=== PATIENT | female | born 1935 | race Caucasian/White ===

== ENCOUNTER 2016-08-19 00:14 | Emergency (ER) | payer OTHER ==
[~2016-08-19] VITALS: Ht 149.9 cm; Wt 63.6 kg
[2016-08-19 00:17] VITALS: Ht 149.9 cm; Wt 63.6 kg
[2016-08-19 00:45] LABS: ADD SCAN DIFF NO
[2016-08-19 00:47] LABS: BASOPHILS % 0.4 % (0.0-2.0); EOSINOPHILS # 0.1 10^3/ul (0.0-0.5); EOSINOPHILS % 0.6 % (0.0-7.0); HEMATOCRIT 37.1 % (37.0-47.0); HEMOGLOBIN 12.4 g/dl (12.0-16.0); LYMPHOCYTES # 2.1 10^3/ul (0.8-2.9); LYMPHOCYTES % 26.3 % (15.0-51.0); MEAN CORPUSCULAR HEMOGLOBIN 30.1 pg (29.0-33.0); MEAN CORPUSCULAR HGB CONC 33.4 g/dl (32.0-37.0); MEAN PLATELET VOLUME 9.5 fl (7.4-10.4); MONOCYTE # 0.8 10^3/ul (0.3-0.9); MONOCYTES % 10.4 % (0.0-11.0); NEUTROPHILS % 62.1 % (39.0-77.0); PLATELET COUNT 257 10^3/UL (140-415); RED BLOOD COUNT 4.12 10^6/ul (4.20-5.40); RED CELL DISTRIBUTION WIDTH 12.8 % (11.5-14.5); WHITE BLOOD COUNT 8.1 10^3/ul (4.8-10.8)
[2016-08-19 01:06] LABS: INR 0.98
[2016-08-19 01:07] LABS: PARTIAL THROMBOPLASTIN TIME 32.4 Sec (25.0-35.0)
[2016-08-19 01:10] LABS: ALANINE AMINOTRANSFERASE 25 IU/L (13-69); ALBUMIN 4.3 g/dl (3.3-4.9); ALBUMIN/GLOBULIN RATIO 1.22; ALKALINE PHOSPHATASE 72 IU/L (42-121); ANION GAP 11 (8-16); ASPARTATE AMINO TRANSFERASE 20 IU/L (15-46); BILIRUBIN,INDIRECT 0.8 mg/dl (0-1.1); BILIRUBIN,TOTAL 0.8 mg/dl (0.2-1.3); BLOOD UREA NITROGEN 11 mg/dl (7-20); CALCIUM 9.9 mg/dl (8.4-10.2); CARBON DIOXIDE 27 mmol/L (21-31); CHLORIDE 104 mmol/L (97-110); CREATINE KINASE 36 IU/L (23-200); CREATININE 0.62 mg/dl (0.44-1.00); GLUCOSE 126 mg/dl (70-220); POTASSIUM 3.3 mmol/L (3.5-5.1); SODIUM 139 mmol/L (135-144); TOTAL PROTEIN 7.8 g/dl (6.1-8.1)
[2016-08-19 01:21] LABS: B-TYPE NATRIURETIC PEPTIDE 91 PG/ML (0-450)
[2016-08-19 01:22] LABS: CK-MB 0.52 ng/ml (0.0-2.4)
[2016-08-19 01:30] LABS: TROPONIN-I < 0.012 ng/ml (0.00-0.12)
[2016-08-19 01:31] LABS: TROPONIN-I < 0.012 ng/ml (0.00-0.12)
--- NOTE | 2016-08-19 01:35 | RADRPT ---
PROCEDURE: CHEST - 1 VIEW CLINICAL INDICATION: 81-year-old female with chest pain. TECHNIQUE: A single frontal supine portable view of the chest was performed. The images were revi ewed on a PACS workstation. COMPARISON: None. FINDINGS: The cardiomediastinal silhouette is mildly enlarged. There is a shallow inspiration. Chronic lung changes are present. There is no evidence for an infiltrate. There is no evidence for congestive h eart failure. There is no evidence for pneumothorax. Surgical clips are seen within the right axilla ry region from prior lymph node dissection. Degenerative changes are present within the spine. IMPRESSION: 1. Mild cardiomegaly. 2. Chronic lung changes. 3. Surgical clips right axillary region from prior lymph node dissection. 4. Degenerative changes within the spine. .Herbert De La Cruz MD, Date Time Electronically viewed and signed by .Herbert De La Cruz MD, on 08/19/2016 01:35 .M/
--- NOTE | 2016-08-19 02:08 | ERA ---
ER Documentation Chief Complaint Date/Time DATE: 08/19/16 TIME: 02:05 Chief Complaint BIBA C/O WEAKNESS AND BILATERAL LEG SWELLING HPI This is an 81-year-old female brought in by ambulance complaining of weakness of bilateral leg swelling over the past 2-3 days. Denies any fevers or chills. Denies any nausea vomiting. She has noticed 2-3 days of swelling in her lower legs. Mild shortness of breath. No chest pain. No other current complaints. ROS All systems reviewed and are negative except as per history of present illness. Allergies Allergies: Coded Allergies: Penicillins (Verified Allergy, Intermediate, 08/19/16) PMhx/Soc Hx Cardiac Disorders: Yes (hypertension, cholesterol) Hx Alcohol Use: No Hx Substance Use: No Hx Tobacco Use: No Smoking Status: Unknown if ever smoked Physical Exam Vitals Vital Signs Date Time Temp Pulse Resp B/P Pulse Ox O2 Delivery O2 Flow Rate FiO2 08/19/16 00:24 102 16 149/67 99 Room Air 08/19/16 00:17 96.8 105 20 137/71 97 Physical Exam Const: [] Head: Atraumatic Eyes: Normal Conjunctiva ENT: Normal External Ears, Nose and Mouth. Neck: Full range of motion..~ No meningismus. Resp: Clear to auscultation bilaterally Cardio: Regular rate and rhythm, no murmurs Abd: Soft, non tender, non distended. Normal bowel sounds Skin: No petechiae or rashes Back: No midline or flank tenderness Ext: No cyanosis, or edema Neur: Awake and alert Psych: Normal Mood and Affect Result Diagram: 08/19/16 0030 08/19/16 0030 Results 24 hrs Laboratory Tests Test 08/19/16 00:30 White Blood Count 8.110^3/ul Red Blood Count 4.1210^6/ul Hemoglobin 12.4g/dl Hematocrit 37.1% Mean Corpuscular Volume 90.0fl Mean Corpuscular Hemoglobin 30.1pg Mean Corpuscular Hemoglobin Concent 33.4g/dl Red Cell Distribution Width 12.8% Platelet Count 24319^3/UL Mean Platelet Volume 9.5fl Neutrophils % 62.1% Lymphocytes % 26.3% Monocytes % 10.4% Eosinophils % 0.6% Basophils % 0.4% Nucleated Red Blood Cells % 0.0/100WBC Neutrophils # 5.010^3/ul Lymphocytes # 2.110^3/ul Monocytes # 0.810^3/ul Eosinophils # 0.110^3/ul Basophils # 0.010^3/ul Nucleated Red Blood Cells # 0.010^3/ul Prothrombin Time 13.0Sec Prothrombin Time Ratio 1.0 INR International Normalized Ratio 0.98 Activated Partial Thromboplast Time 32.4Sec Sodium Level 139mmol/L Potassium Level 3.3mmol/L Chloride Level 104mmol/L Carbon Dioxide Level 27mmol/L Anion Gap 11 Blood Urea Nitrogen 11mg/dl Creatinine 0.62mg/dl Glucose Level 126mg/dl Calcium Level 9.9mg/dl Total Bilirubin 0.8mg/dl Direct Bilirubin 0.00mg/dl Indirect Bilirubin 0.8mg/dl Aspartate Amino Transf (AST/SGOT) 20IU/L Alanine Aminotransferase (ALT/SGPT) 25IU/L Alkaline Phosphatase 72IU/L Creatine Kinase 36IU/L Creatine Kinase Index 1.4 Creatinine Kinase MB (Mass) 0.52ng/ml Troponin I < 0.012ng/ml B-Type Natriuretic Peptide 91PG/ML Total Protein 7.8g/dl Albumin 4.3g/dl Globulin 3.50g/dl Albumin/Globulin Ratio 1.22 Procedures/MDM EKG: Rate/Rhythm: [Normal Sinus Rhythm] QRS, ST, T-waves: [No changes consistent w/ acute ischemia] Impression: [No evidence of ischemia or arrhythmia] Chest X-ray 1V Interpreted by me: Soft Tissue: No acute abnormalities Bones: No acute abnormalities Mediastinum/Cardiac Silhouette/Lungs: [No acute abnormalities] Patient's heart failure symptoms is concerning for acute decompensation and will require inpatient workup and monitoring. Further w/u for ischemia, arrhythmia, PE or dissection will be deferred to the inpatient team. Accepting Care Team: Current data and ongoing care discussed. Time: T 2 AM Primary Provider: Patient to be transferred to [facility] for insurance Consulting: [XOXOXO] Outstanding Data: none Departure Diagnosis: Primary Impression: Swelling Condition: Serious SHANICEELSYCarlee August 19, 2016 02:08
[2016-08-19 03:04] VITALS: BP 127/65; PULSE 80; RESP 15
== END 2016-08-19 03:05 | disposition short-term general hospital (02) ==
LOC: E/R 00:14
DX: R22.43 Localized swelling, mass and lump, lower limb, bilateral (principal); I10 Essential (primary) hypertension; R07.9 Chest pain, unspecified
CPT/HCPCS: 36415; 71010; 80053; 82550; 82553; 83880; 84484; 85025; 85610; 85730; 93005